=== PATIENT | male | born 1945 | race Caucasian/White ===

== ENCOUNTER 2024-09-23 16:37 | Emergency (ER) | payer OTHER, MEDICARE ==
[~2024-09-23] VITALS: Ht 172.7 cm; Wt 83.6 kg
[2024-09-23] MEDS: HYDROmorphone 1 mg/ml syringe IV ONE (16:55)
[2024-09-23 18:19] LABS: BASOPHILS % (AUTO) 0.1 % (0-1); EOSINOPHILS % (AUTO) 0 % (0-6); HEMATOCRIT 46.5 % (42.0-52.0); HEMOGLOBIN 15.3 g/dl (14.0-17.9); LYMPHOCYTES # (AUTO) 0.4 X10'3 (1.1-4.8); LYMPHOCYTES % (AUTO) 1.9 % (21-51); MEAN CORPUSCULAR HEMOGLOBIN 30.7 PG (27.0-31.0); MEAN CORPUSCULAR HGB CONC 32.8 g/dL (33.0-36.5); MEAN CORPUSCULAR VOLUME 93.5 FL (78-98); MEAN PLATELET VOLUME 7.1 FL (7.4-10.4); MONOCYTES # (AUTO) 1.2 X10'3 (0-0.9); NEUTROPHILS # (AUTO) 18.3 X10'3 (1.8-7.7); PLATELET COUNT 312 X10'3 (140-440); RED BLOOD COUNT 4.98 X10'6 (4.70-6.10); RED CELL DISTRIBUTION WIDTH 13.7 % (11.5-14.5); WHITE BLOOD COUNT 19.9 X10'3 (4.5-11.0)
[2024-09-23] MEDS: ketamine 10mg/ml 20ml inj vial IV ONE (18:25)
[2024-09-23 18:31] LABS: ALANINE AMINOTRANSFERASE 16 U/L (12-78); ALBUMIN 3.7 G/DL (3.4-5.0); ALKALINE PHOSPHATASE 55 IU/L (46-116); ANION GAP 14 (8-16); ASPARTATE AMINO TRANSFERASE 22 U/L (10-37); BLOOD UREA NITROGEN 18 MG/DL (7-18); BUN/CREATININE RATIO 18.2 (10.0-20.0); CALCIUM 9.5 MG/DL (8.5-10.1); CHLORIDE 103 MMOL/L (99-107); CREATININE 0.99 MG/DL (0.60-1.10); GLUCOSE 145 MG/DL (70-104); POTASSIUM 3.9 MMOL/L (3.5-5.1); SODIUM 140 MMOL/L (135-145); TOTAL CARBON DIOXIDE 23.3 MMOL/L (24-32); TOTAL PROTEIN 7.5 G/DL (6.4-8.2); eCRCL 59 ML/MIN; eGFR 73 ML/MIN
[2024-09-23 19:45] LABS: BILIRUBIN,URINE NEGATIVE (Neg); COLOR,URINE YELLOW (Yellow); GLUCOSE, URINE >=1000 mg/dl (Neg); KETONES,URINE 40 mg/dl (Neg); LEUKOCYTE ESTERASE ,URINE NEGATIVE (Neg); NITRITES, URINE NEGATIVE (Neg); OCCULT BLOOD,URINE TRACE-LYSED (Neg); PH,URINE 5.5 (4.8-8.0); PROTEIN,URINE NEGATIVE (Neg); UROBILINOGEN,URINE 0.2 E.U/dL (0.2-1.0)
[2024-09-23 19:49] LABS: CLARITY,URINE SLIGHTLY CLOUDY (Clear); UA COLLECTION TYPE CLN CATCH MIDSTREAM
[2024-09-23 19:50] LABS: WBC,URINE 50-100 /HPF (0-4)
[2024-09-23 19:51] LABS: BACTERIA,URINE FEW /HPF (Neg); MUCUS STRANDS NONE SEEN /LPF (Neg); RBC,URINE 0-2 /HPF (0-2); SQUAMOUS EPITHELIAL CELL,UR NONE SEEN /LPF (FEW); WBC CLUMPS,URINE FEW /HPF (NEGATIVE)
[2024-09-23] MEDS ORDERED: CEFD300C3 PO (21:35)
[2024-09-23] MEDS: CefTRIAXone/D5W-Rocephin 1gm 50 ML IV ONE (21:51)
[2024-09-23 22:22] VITALS: BP 129/64; PULSE 86; RESP 16; TEMP 98; O2SAT 98
== END 2024-09-23 22:52 | disposition home or self-care (01) ==
LOC: ER 16:39
DX: S43.014A Anterior dislocation of right humerus, initial encounter (principal); N39.0 Urinary tract infection, site not specified; X58.XXXA Exposure to other specified factors, initial encounter; Y93.89 Activity, other specified; Y92.89 Other specified places as the place of occurrence of the external cause; Y99.8 Other external cause status
CPT/HCPCS: 23650; 36415; 71045; 73030; 80053; 81001; 85025; 87088; 96365; 96375; 99285; J0696; J1171; J3490; J7030; 94760; A4565; A4620; A6250; A6590

== ENCOUNTER 2025-07-22 11:51 | Emergency (ER) | payer OTHER, MEDICARE ==
[~2025-07-22] VITALS: Ht 172.7 cm; Wt 88.0 kg
[2025-07-22 11:53] VITALS: TEMP 97.8
--- NOTE | 2025-07-22 14:37 | Physician Documentation ---
History of Present Illness ~ Chief Complaint: Mechanical Fall Stated Complaint: FALL Time Seen by MD: 14:18 Source: patient (8), old records Mode of Arrival: EMS HPI Patient comes in for evaluation after a fall. He has a history of progressive Parkinson's disease, lives alone, and reports that he has begun to have falls over the course of the last year or so. Usually they were about once a month, but over the last week he has had falls more days than not. He reports it is always when he becomes distracted and loses control of his walker, pushing it a bit too far ahead. Every time, including today, he lands on his buttocks, and he reports no problems or injuries from his fall which occurred last night. He did not have his phone handy and could not scoot himself over to the phone to call for help, so he spent the night on the ground. He reports that when paramedics came he was able to stand, bear weight, and transfer. He did not strike his head, has no pain in his neck, back, hips, or anywhere else, and feels otherwise fine. Patient is adamant that he is going to want to return home, and tells me that t [facility] the [place] he has daily help, and is planning to ask them for more help at home so that he may stay in his own house. Tetanus within 5 Years?: No Medication Reconciliation Allergies: Coded Allergies: No Known Allergies (Unverified , 09/23/24) Scheduled Nitrofurantoin Monohyd/M-Cryst (Macrobid 100 mg Capsule), 1 CAP PO Q12H Past Medical History Past Medical History: Parkinson's Disease, Hypertension, Diabetes, Anxiety (PTSD) Smoking Status: Never smoker Alcohol Use: None Drug Use: none Review of Systems All Other Systems at this time: Reviewed and Negative Physical Exam Vital Signs: Temperature: 97.8, Source: Oral, Heart Rate: 71, Respiratory Rate: 16, BP: 167/75, Pulse Oximetry: 98, Weight: 88.000 Oxygen Flow Rate: 0 Physical Exam General: Pt is awake, alert, oriented x4 in no acute distress and well appearing. Head: Normocephalic with some old, light yellow discoloration over the bridge of his nose and over his forehead. Eyes: Conjunctiva normal. ENT: Mucous membranes moist. Neck: Supple. Completely nontender. Chest: Clear to auscultation bilaterally, without rales, rhonchi, or wheezes. There is no accessory muscle use or retractions. Cardiac: Regular rate and rhythm without murmurs, gallops or rubs. Palpation of the chest wall is normal. Abd: Soft, nondistended, nontender, with normoactive bowel sounds. No guarding or rebound. Extremities: Within normal limits without cyanosis, clubbing, or edema. No tenderness over the hips or sacrum. Full range of motion of the hips. Skin: [place], warm and dry with no significant rash appreciated. Neuro: Cranial nerves II-XII grossly intact. Progress Results/Orders Results/Orders Orders - ARGELIA GAINES MD Ct [facility] (07/22/25 14:52) Cult Urine + [place] Ct (07/22/25 15:00) Gait Test (07/22/25 16:26) Completed Orders - ARGELIA GAINES MD Cbc/Diff (07/22/25 14:37) Electrocardiogram (07/22/25 14:37) BMP (07/22/25 14:37) Ct Head (07/22/25 14:52) Ua W/Microscopic, Cult If Ind (07/22/25 14:24) Nitrofur [place]/Nitrofuran Macr (Macrobid (07/22/25 16:30) Medications Received in ER Medications (Trade) Dose Ordered Sig/Pablo Route PRN Reason Start Time Stop Time Status Last Admin Dose Admin (MacroBID capsule) 100 mg ONCE ONCE PO 07/22/25 16:30 07/22/25 16:31 DC 07/22/25 16:38 100 MG Vital Signs 07/22/25 07/22/25 07/22/25 07/22/25 11:53 12:37 12:54 15:00 Temp 97.8 Pulse 63 71 72 Resp 18 22 16 18 B/P (MAP) 176/70 167/75 (105) 139/71 (93) Pulse Ox 100 98 98 O2 Flow Rate 0 0 0 Laboratory Tests Test 07/22/25 14:24 07/22/25 14:58 Urine Specimen Description Voided Urine Color Yellow Urine Clarity Cloudy Urine pH 6.0 Urine Specific [place] 1.025 Urine Protein Negative Urine Glucose (UA) >=1000 H Urine Ketones >=80 Urine Occult Blood Small Urine Nitrite Positive H Urine Bilirubin Negative Urine Urobilinogen 0.2 Urine Leukocyte Esterase Moderate H Urine RBC 0-2 Urine WBC Tntc H Urine Squamous Epithelial Cells None seen Urine Bacteria 2+ Urine Mucus None seen Urine Culture Indicated Indicated Volume Urine Centrifuged 10 ml Urine Comment White Blood Count 9.6 Red Blood Count 4.84 Hemoglobin 15.6 Hematocrit 45.2 Mean Corpuscular Volume 93.3 Mean Corpuscular Hemoglobin 32.2 H Mean Corpuscular Hemoglobin Concent 34.5 Red Cell Distribution Width 14.4 Platelet Count 341 Mean Platelet Volume 6.9 L Neutrophils (%) (Auto) 81.4 H Lymphocytes (%) (Auto) 11.5 L Monocytes (%) (Auto) 6.0 Eosinophils (%) (Auto) 0.8 Basophils (%) (Auto) 0.3 Neutrophils # (Auto) 7.8 H Lymphocytes # (Auto) 1.1 Monocytes # (Auto) 0.6 Eosinophils # (Auto) 0.1 Basophils # (Auto) 0.0 CBC Comment Sodium Level 133 L Potassium Level 3.8 Chloride Level 96 L Carbon Dioxide Level 23.3 L Anion Gap 14 Blood Urea Nitrogen 25 H Creatinine 0.89 Estimated GFR/1.73 m2 83 BUN/Creatinine Ratio 28.1 H Glucose Level 68 L Calcium Level 9.1 Albumin 3.6 Chemistry Comments Microbiology Date/Time Source Procedure Growth Status 07/22/25 15:00 Urine Voided Urine Culture - Preliminary Culture received. Resulted Re-Evaluation Re-Evaluation #1: Re-Evaluation Time: 16:28 Progress Pt remains comfortable and is resting. CT normal. Labs reassuring but UTI noted on UA. Pt without evidence for pyelonephritis and still wants to go home despite being offered admission. He is gait testing now. Re-Evaluation #2: Re-Evaluation Time: 16:43 Progress Pt ambulated with walker, with no assistance. Medical Decision Making Additional Comment Patient with a history of Parkinson's, worsening, with unsteadiness and balance issues. He does have help at home, and uses a walker, and feels that he will be fine if discharged to home. He declines admission and is competent to make this decision. [facility] as well as to request further in-home services. I have stressed the importance of always using his walker and focusing on his ambulation rather than letting himself get distracted. Laboratory workup is unremarkable except for evidence of urinary tract infection, and there is no fever, confusion, kidney pain to suggest acute pyelonephritis. Patient will be treated orally as an outpatient. He understands to return immediately to the emergency department if he has any new or worsening symptoms or other concerns. Departure Time of Disposition: 16:31 Disposition: 01 HOME / SELF CARE / HOMELESS Impression: Primary Impression: Fall Qualified Codes: W19.XXXA - Unspecified fall, initial encounter Additional Impressions: Parkinsons disease Qualified Codes: G20.A1 - Parkinson's disease without dyskinesia, without mention of fluctuations UTI (urinary tract infection) Qualified Codes: N30.00 - Acute cystitis without hematuria Condition: Stable Discharge Instructions: Fall Prevention in the Home, Adult, [id number] Additional Instructions: It is critical that you always use your walker when you are walking, and that you concentrate on your steps and not let yourself get distracted. I highly recommend that you talk to the [facility] about [facility] help, if you want to stay safely in your home. You have a urinary tract infection and have been given a prescription for antibiotics -- take the antibiotics until they are finished. Follow-up with your regular doctor for a recheck and to check of the cultures. You need to return to the emergency department immediately if you have continued falls, if you have any severe headache, weakness, fever, blood in the urine or stools, or any other concerns. Referrals: NO PRIMARY CARE PROVIDER (PCP) Prescriptions Nitrofurantoin Monohyd/M-Cryst (Macrobid 100 mg Capsule) 100 Mg Capsule 1 CAP PO Q12H for 7 Days, #14 CAP 0 Refills Prov: ARGELIA GAINES MD 07/22/25 Education Educated: Patient Educated regarding: diagnosis, treatment Signature Scribe Signature: Attestation: ARGELIA GAINES MD Jul 22, 2025 14:37
[2025-07-22 14:52] LABS: LEUKOCYTE ESTERASE ,URINE MODERATE (Neg); NITRITES, URINE POSITIVE (Neg); OCCULT BLOOD,URINE SMALL (Neg)
[2025-07-22 14:56] LABS: UA COLLECTION TYPE VOIDED
[2025-07-22 14:59] LABS: MUCUS STRANDS NONE SEEN /LPF (Neg); SQUAMOUS EPITHELIAL CELL,UR NONE SEEN /LPF (FEW)
--- NOTE | 2025-07-22 15:04 | ELECTROCARDIOGRAPH REPORT ---
[facility] Test Date: 2025-07-22 Test Time: 15:01:06 Pat Name: DOUG DEE Department: [facility] Patient ID: [facility]-[id number] Room: Gender: M [employer]: : 1945 Requested By: ARGELIA GAINES Order Number: [id number] Reading MD: Measurements Intervals [place] Rate: 154 P: 0 MS: 0 QRS: 34 QRSD: 91 T: 263 QT: 175 QTc: 280 Interpretive Statements Atrial fibrillation with rapid V-rate Paired ventricular premature complexes Abnormal R-wave progression, early transition Repolarization abnormality, prob rate related Artifact in lead(s) I,II,III,aVR,aVL,aVF,V1,V2,V3,V5 and baseline wander in lead(s) V3 Please click the below link to view image of tracing.
--- NOTE | 2025-07-22 15:04 | RADIOLOGY REPORT ---
Procedure: [facility] Study Date and Requested Time: 07/22/2025 02:40 PM History: freq falls w/Parkinson's Comparison: None Dose: CTDI: 64.03 mGy DLP: 1175.61 mGycm Technique: Multiplanar images obtained through the brain without intravenous contrast. Findings: [id number] diffuse brain Atrophy. Mild chronic small vessel ischemic changes. No hemorrhages, masses, mass effect, midline shift, herniation or cytotoxic edema following a large vascular territory. No intra-axial or extra-axial fluid collections. No evidence of hydrocephalus. The basal cisterns are patent. The pituitary gland, sella and parasellar regions are unremarkable. The cerebellar tonsils are in normal position. The cerebellum is unremarkable. Bilateral lens replacement. Otherwise, orbits and globes are unremarkable. The paranasal sinuses and mastoids are clear. There are no worrisome calvarial lesions. Right-sided anterolateral frontal scalp soft tissue lesion measuring up to 1.9 x 0.7 x 2 cm with no significant underlying calvarial changes. Impression: No evidence of acute intracranial abnormality. Right-sided anterolateral frontal scalp soft tissue lesion measuring up to 1.9 x 0.7 x 2 cm with no significant underlying calvarial changes. Recommend further evaluation of the direct visualization.
[2025-07-22 15:57] LABS: MEAN PLATELET VOLUME 6.9 FL (7.4-10.4); RED CELL DISTRIBUTION WIDTH 14.4 % (11.5-14.5)
[2025-07-22 16:02] LABS: CREATININE 0.89 MG/DL (0.60-1.10); TOTAL CARBON DIOXIDE 23.3 MMOL/L (24-32); eCRCL 66 ML/MIN; eGFR 83 ML/MIN
[2025-07-22] MEDS ORDERED: NITR100C6 PO (16:33)
[2025-07-22] MEDS: nitrofuran monohydrate/nitrofuran macrocrysal 100 MG (MacroBID) capsule PO ONE (16:38)
[2025-07-22 16:54] VITALS: BP 131/86; PULSE 16; RESP 18; O2SAT 98
== END 2025-07-22 17:04 | disposition home or self-care (01) ==
LOC: ER 11:53
DX: Z04.3 Encounter for examination and observation following other accident (principal); N39.0 Urinary tract infection, site not specified; G20.A1 Parkinson's disease without dyskinesia, without mention of fluctuations; E11.9 Type 2 diabetes mellitus without complications; I10 Essential (primary) hypertension; F41.9 Anxiety disorder, unspecified; I48.91 Unspecified atrial fibrillation; Z79.899 Other long term (current) drug therapy; Z60.2 Problems related to living alone; W18.30XA Fall on same level, unspecified, initial encounter; Y93.89 Activity, other specified; Y92.89 Other specified places as the place of occurrence of the external cause; Y99.8 Other external cause status
CPT/HCPCS: 36415; 70450; 80048; 81001; 85025; 87088; 93005; 99284